=== PATIENT | female | born 1950 | race African-American/Black ===

== ENCOUNTER 2019-01-17 08:59 | Emergency (ER) | payer OTHER ==
[~2019-01-17] VITALS: Ht 157.5 cm; Wt 30.8 kg
[~2019-01-17 08:59] MED LIST: GLIP10TA55 PO
[2019-01-17] MEDS ORDERED: CIPR500T PO (09:50)
[2019-01-17] MEDS ORDERED: METFORMIN ER1000 MG PO (09:52)
[2019-01-17 09:55] LABS: PLATELET COUNT 206 K/uL (152-353)
[2019-01-17] MEDS ORDERED: LISITAB PO (10:01)
[2019-01-17] MEDS ORDERED: PRAVACHOL20 MG PO (10:02)
[2019-01-17 10:05] LABS: POTASSIUM 4.3 mmol/L (3.6-5.2); SODIUM 139 mmol/L (136-145)
[2019-01-17 13:43] VITALS: BP 117/61; TEMP 98
== END 2019-01-17 13:46 | disposition home or self-care (01) ==
LOC: ED 08:59
PROVIDERS: Emergency Medicine
DX: R07.89 Other chest pain (principal); M94.0 Chondrocostal junction syndrome [Tietze]
CPT/HCPCS: 36415; 80053; 82150; 82550; 82553; 83690; 84484; 85027; 85379; 93005; 96374; 99284; J2270